=== PATIENT | male | born 1945 | race Caucasian/White ===

== ENCOUNTER → 2017-10-07 12:16 | Outpatient (CLI) | payer OTHER, SELFPAY ==
--- NOTE | 2017-10-07 | DI.MRI.S_ITS ---
PROCEDURE: MR ABDOMEN WO/W CON INDICATIONS: Liver cell carcinoma TECHNIQUE: Coronal HASTE, axial 2D FLASH in- and [id number]; axial breath-hold T2 FSE. Dynamic axial VIBE during the administration of contrast; post-contrast coronal VIBE or 2D FLASH with fat saturation from the hepatic dome to the iliac crests. Optional diffusion weighted imaging and ADC may be performed. COMPARISON: [facility], , ABDOMEN W&WO CONTRAST, 09/03/2015, 10:08. [facility], MR, ABDOMEN W&WO CONTRAST, 03/30/2016, 14:46. [facility], MR, ABDOMEN W&WO CONTRAST, 06/18/2016, 12:56. [facility], MR, ABDOMEN W&WO CONTRAST, 10/08/2016, 9:54. [facility], MR, ABDOMEN W&WO CONTRAST, 05/19/2017, 10:46. FINDINGS: Image quality: Excellent. Lung bases: No basal pleural effusions. Heart size is normal. Solid organs: Postsurgical changes are redemonstrated status post right hepatic lobe resection with fibrosis and scarring along the surgical margin. Along the posterior aspect of the surgical margin, there is a nodular focus of hypervascular enhancement following contrast administration measuring up to approximately 1.4 x 1.1 cm with slight washout on delayed imaging. In addition, along the mid inferior aspect of the surgical margin there is a small linear focus of hypervascular enhancement measuring approximately 0.3 cm which is indeterminate with no definitive washout on delayed images. Along the lateral left hepatic lobe, there is a peripheral collection redemonstrated demonstrating mildly hyperintense intrinsic T1 signal, measuring approximately 3.3 x 3.0 cm in transverse dimension. This appears similar in size compared to the prior study and demonstrates no definite internal enhancement following contrast administration. Findings likely represent sequela of prior treatment. In addition, within segment 3 of the lateral left hepatic lobe, there is a small hypervascular enhancing focus measuring approximately 0.5 cm which is new from the prior study. This demonstrates isointense signal on portal venous and delayed phases without definitive washout. Biliary system is non dilated. Pancreas is normal in morphology. Spleen is normal in size and enhancement. No adrenal nodules. Both kidneys demonstrate normal size and enhancement, without hydronephrosis. Nodes and vessels: No retroperitoneal or mesenteric adenopathy by size criteria. Aorta and inferior vena cava are normal in size. Bowel and peritoneum: Visualized bowel loops are normal in caliber. No free fluid. Bones and soft tissues: No ventral hernias. Bone marrow is normal in overall signal. IMPRESSION: 1. Postsurgical changes redemonstrated status post right hepatic lobe resection. 2. New hypervascular focus of enhancement along the posterior surgical margin with mild washout suspicious for recurrent disease. 3. Additional small linear 0.3 cm focus of enhancement along the surgical margin is nonspecific.. A new small nonspecific hypervascular focus is also noted in segment 3 of the left hepatic lobe. Recurrent disease cannot be excluded and continued followup is recommended. 4. Round nonenhancing collection along the lateral left hepatic lobe redemonstrated likely representing sequela of prior treatment. Dictated by: Jeremias Belcher M.D. on 10/07/2017 at 16:55 Approved by: Jeremias Belcher M.D. on 10/07/2017 at 17:17
[2017-10-07 13:16] LABS: Estimated Glomerular Filt Rate > 60.0 mL/min (>60)
== END ==
PROVIDERS: PCP Internal Medicine Gastroenterology; Visit Provider Internal Medicine Gastroenterology
DX: C22.0 Liver cell carcinoma (principal)
CPT/HCPCS: 36415; 74183; 82565; A9579

== ENCOUNTER → 2018-04-13 11:36 | Outpatient (CLI) | payer OTHER, SELFPAY ==
--- NOTE | 2018-04-13 | DI.MRI.S_ITS ---
PROCEDURE: MR ABDOMEN WO/W CON INDICATIONS: HEPATOCELLULAR CARCINOMA SURVEILLANCE TECHNIQUE: Coronal HASTE, axial 2D FLASH in- and [id number]; axial breath-hold T2 FSE. Dynamic axial VIBE during the administration of contrast; post-contrast coronal VIBE or 2D FLASH with fat saturation from the hepatic dome to the iliac crests. Optional diffusion weighted imaging and ADC may be performed. COMPARISON: [facility], MR, ABDOMEN W&WO CONTRAST, 10/08/2016, 9:54. [facility], MR, ABDOMEN W&WO CONTRAST, 06/18/2016, 12:56. [facility], MR, MR ABDOMEN WO/W CON, 10/07/2017, 14:25. [facility], MR, ABDOMEN W&WO CONTRAST, 05/19/2017, 10:46. FINDINGS: Image quality: Excellent. Lung bases: No basal pleural effusions. Heart size is normal. Solid organs: Liver is stable in size, showing postoperative change of right hepatic lobe resection. The left portal vein is patent, and reference to the multiple prior similar MR studies show evidence of recurrent hepatoma at 2 sites, in my opinion. One is located at the posterior border of the resection bed, best seen on the early arterial phase of contrast enhancement, and seen on the prior MRI from September of last year on series 11 image 44. This appears to be slightly enlarged seen on the current series 8, image 17. The current maximal dimension of this focus of enhancement is 1.8 cm, and previously it had measured 1.3 cm. The second site is at the far posterior border of the left lateral hepatic segment, also which appears to have slightly enlarged. On the prior study this had measured 8 mm in maximal dimension, series 11 image 42 and currently measures 1.4 cm in maximal dimension, series 8 image 22. Each of these areas shows early washout, and a rounded hypoenhancing structure immediately above the left lateral hepatic segment lesion is again noted, has not enlarged and measures approximately 3.0 cm in diameter. Gallbladder appears absent. Biliary system is non dilated. Pancreas is normal in morphology. Spleen is normal in size and enhancement. No adrenal nodules. Both kidneys demonstrate normal size and enhancement, without hydronephrosis. Nodes and vessels: No retroperitoneal or mesenteric adenopathy by size criteria. Aorta and inferior vena cava are normal in size. Bowel and peritoneum: Unenhanced bowel loops are normal in caliber. No free fluid. Bones and soft tissues: No ventral hernias. Bone marrow is normal in overall signal. IMPRESSION: 2 hyperenhancing foci of hepatic parenchyma previously present as small lesions on the comparison MRI 10/07/17 have mildly enlarged, most consistent with recurrent hepatoma in this patient with prior right hepatectomy or prior disease. Stable appearance of a hypoenhancing nodule within the liver parenchyma on the left consistent with successfully treated prior disease. Dictated by: Anish Stewart M.D. on 04/13/2018 at 16:43 Approved by: Anish Stewart M.D. on 04/13/2018 at 16:52
== END ==
PROVIDERS: PCP Internal Medicine Gastroenterology; Visit Provider Internal Medicine Gastroenterology
DX: C22.0 Liver cell carcinoma (principal)
CPT/HCPCS: 74183; A9579

== ENCOUNTER → 2018-07-25 09:58 | Outpatient (CLI) | payer OTHER, SELFPAY ==
--- NOTE | 2018-07-25 | DI.MRI.S_ITS ---
PROCEDURE: MR ABDOMEN WO/W CON INDICATIONS: LIVER CELL CARCINOMA TECHNIQUE: Coronal HASTE, axial 2D FLASH in- and [id number]; axial breath-hold T2 FSE. Dynamic axial VIBE during the administration of contrast; post-contrast coronal VIBE or 2D FLASH with fat saturation from the hepatic dome to the iliac crests. Optional diffusion weighted imaging and ADC may be performed. COMPARISON: [facility], MR, ABDOMEN W&WO CONTRAST, 05/19/2017, 10:46. [facility], MR, MR ABDOMEN WO/W CON, 10/07/2017, 14:25. [facility], MR, MR ABDOMEN WO/W CON, 04/13/2018, 12:45. FINDINGS: Image quality: Excellent. Lung bases: No basal pleural effusions. Heart size is normal. Solid organs: Postsurgical changes are redemonstrated status post resection of the right hepatic lobe. Along the medial surgical margin in the residual liver, there is a small focus of hypervascular enhancement redemonstrated measuring up to approximately 1.0 x 1.0 cm in transverse dimension, decreased in size from approximately 1.8 x 1.2 cm on the prior study at a comparable level. There is corresponding mild washout redemonstrated on the delayed phase. The findings are again compatible with residual or recurrent disease. Peripherally within segment 2, there is a small region of possible hypervascular enhancement redemonstrated with evaluation limited T2 artifact from adjacent bowel loops. There is no definite corresponding washout on the delayed phase. This lesion appears increased in size compared to the prior study, measuring up to approximately 2.0 x 1.2 cm in transverse dimension. Within segment 2 of the left hepatic lobe more posteriorly, there is a small hypervascular focus of enhancement measuring approximately 0.7 cm which is increased in size from the prior study. There is suggestion of mild washout on the delayed phase. The findings likely represent another focus of hepatocellular carcinoma. Peripherally within the left hepatic lobe in segment 2 there is a round collection redemonstrated measuring approximately 3.3 x 3.1 cm without corresponding enhancement consistent with post treatment changes. The gallbladder is surgically absent. Biliary system is non dilated. Pancreas is normal in morphology. Spleen is normal in size. No adrenal nodules. The kidneys demonstrate no hydronephrosis. Nodes and vessels: No retroperitoneal or mesenteric adenopathy by size criteria. Aorta and inferior vena cava are normal in size. Bowel and peritoneum: Visualized bowel loops are normal in caliber. No free fluid. Bones and soft tissues: No ventral hernias. Bone marrow is normal in overall signal. IMPRESSION: 1. Postsurgical changes redemonstrated status post right hepatic lobe resection. Along the surgical margin, and there is a persistent hypervascular enhancing lesion with washout compatible with residual or recurrent disease. This demonstrates slight decrease in size compared to the prior study. 2. Small 0.7 cm hypervascular lesion within segment 2 of the left hepatic lobe with corresponding washout demonstrates interval increase in size and likely represents another focus of hepatocellular carcinoma. 3. Decrease in size of an ill-defined region of hypervascularity peripherally within segment 2 of the left hepatic lobe. No discrete washout identified on the delayed phase. The findings are nonspecific and may represent vascular shunting but attention is recommended on followup. 4. Post treatment cavity redemonstrated in segment 2 of the left hepatic lobe. Dictated by: Jeremias Belcher M.D. on 07/25/2018 at 16:34 Approved by: Jeremias Belcher M.D. on 07/25/2018 at 16:49
== END ==
PROVIDERS: PCP Internal Medicine Gastroenterology; Visit Provider Radiology Vascular & Interventional Radiology
DX: C22.0 Liver cell carcinoma (principal)
CPT/HCPCS: 74183; A9579

== ENCOUNTER → 2018-10-21 11:50 | Outpatient (CLI) | payer OTHER, SELFPAY ==
--- NOTE | 2018-10-21 | DI.MRI.S_ITS ---
PROCEDURE: MR ABDOMEN WO/W CON INDICATIONS: follow up TECHNIQUE: Coronal HASTE, axial 2D FLASH in- and [id number]; axial breath-hold T2 FSE. Dynamic axial VIBE during the administration of contrast; post-contrast coronal VIBE or 2D FLASH with fat saturation from the hepatic dome to the iliac crests. Optional diffusion weighted imaging and ADC may be performed. COMPARISON: [facility], MR, ABDOMEN W&WO CONTRAST, 05/19/2017, 10:46. [facility], MR, MR ABDOMEN WO/W CON, 10/07/2017, 14:25. [facility], MR, MR ABDOMEN WO/W CON, 04/13/2018, 12:45. [facility], MR, MR ABDOMEN WO/W CON, 07/25/2018, 10:52. FINDINGS: Image quality: Excellent. Lung bases: No basal pleural effusions. Heart size is normal. Solid organs: There are postsurgical changes consistent with prior right hepatic lobectomy. Along the surgical margin, there is a small hypervascular enhancing lesion redemonstrated measuring approximately 1.9 x 1.4 cm in transverse dimension, progressively increased in size over time compared to the prior studies. There is slight washout again noted on the delayed phase. There is corresponding restricted diffusion. The finding is again suspicious for hepatocellular carcinoma. Within segment 2 of the left hepatic lobe, there is a small hypervascular enhancing lesion redemonstrated measuring up to 0.6 cm, similar in size to the prior study. There is associated washout without a discrete capsule. There is corresponding restricted diffusion. The findings are also suspicious for a new small focus of hepatocellular carcinoma. Laterally in segment 2 of the left hepatic lobe, there is a peripheral hypervascular lesion measuring 1.2 x 1.1 cm in transverse dimension, similar in size to the prior study but progressively increased compared to older exams. This demonstrates persistent hypervascular enhancement on the portal venous and delayed phases. There is also corresponding restricted diffusion. Although there is no washout on delayed images, the findings likely represent an atypical hepatocellular carcinoma. The remnant biliary system is non dilated. Pancreas is normal in morphology. Spleen is normal in size and enhancement. No adrenal nodules. Kidneys demonstrate no hydronephrosis. There are small bilateral renal cysts. Nodes and vessels: No retroperitoneal or mesenteric adenopathy by size criteria. Aorta and inferior vena cava are normal in size. Bowel and peritoneum: Visualized bowel loops are normal in caliber. No free fluid. Bones and soft tissues: No ventral hernias. Bone marrow is normal in overall signal. IMPRESSION: 1. Post surgical changes status post right hepatic lobectomy with progressive increase in size of a hypervascular lesion along the surgical margin redemonstrated. Given the associated washout and restricted diffusion, the findings are consistent with residual or recurrent hepatocellular carcinoma. LI-RADS 5 2. Additional lesions within segment 2 of the left hepatic lobe as described are also progressively increased compared to the prior studies and are consistent with multifocal HCC. LI-RADS 5 Dictated by: Jeremias Belcher M.D. on 10/21/2018 at 15:59 Approved by: Jeremias Belcher M.D. on 10/21/2018 at 16:35
== END ==
PROVIDERS: PCP Internal Medicine Gastroenterology; Visit Provider Internal Medicine Gastroenterology
DX: Z08 Encounter for follow-up examination after completed treatment for malignant neoplasm (principal); Z85.05 Personal history of malignant neoplasm of liver; K76.9 Liver disease, unspecified
CPT/HCPCS: 74183; A9579

== ENCOUNTER → 2019-06-20 10:08 | Outpatient (CLI) | payer OTHER, SELFPAY ==
--- NOTE | 2019-06-20 | DI.US.S_ITS ---
PROCEDURE: US ABDOMEN LIMITED INDICATIONS: POSSIBLE ASCITES TECHNIQUE: Real-time focused scanning was performed of the abdomen, with image documentation. COMPARISON: None. FINDINGS: No ascites found. IMPRESSION: No ascites present for paracentesis. Dictated by: Anish Stewart M.D. on 06/20/2019 at 13:24 Approved by: Anish Stewart M.D. on 06/20/2019 at 13:25
[2019-06-20 10:42] LABS: Add Manual Diff / Slide Review NO; Basophils Absolute Auto 0 /uL (0-100); Basophils Percent Auto 0.3 % (0-2); Eosinophils Absolute Auto 0 /uL (0-450); Eosinophils Percent Auto 0.6 % (2-4); Hematocrit 41.1 % (41-53); Hemoglobin 13.6 g/dL (13.5-17.5); Lymphocytes Absolute Auto 500 /uL (1100-4500); Lymphocytes Percent Auto 5.9 % (25-40); Mean Corpuscular Hemoglobin 29.7 PG (26-34); Mean Corpuscular Volume 90.1 fL (80-100); Monocytes Absolute Auto 300 /uL (0-900); Monocytes Percent Auto 3.1 % (3-14); Neutrophils Absolute Auto 7500 /uL (1500-7000); Neutrophils Percent Auto 90.1 % (50-75); Platelet Count 94 X10^3/uL (150-400); Red Blood Cell Count 4.56 X10^6/uL (4.5-5.9); Red Cell Distribution Width 16.1 % (11.6-14.8); White Blood Cell Count 8.3 X10^3/uL (4.5-11.0)
[2019-06-20 10:52] LABS: INR 0.9 (0.9-1.3); Prothrombin Time 10.4 SECONDS (10.1-12.7)
== END ==
PROVIDERS: PCP Internal Medicine Gastroenterology; Referring Provider Family Medicine; Visit Provider Family Medicine
DX: R18.8 Other ascites (principal); R06.00 Dyspnea, unspecified
CPT/HCPCS: 36415; 76705; 85025; 85610

== ENCOUNTER 2019-09-07 18:52 | Observation (INO) | payer MEDICARE, SELFPAY ==
[2019-09-07] VITALS (7 sets, daily range): BP systolic 99–139; BP diastolic 63–92; PULSE 86–112; RESP 19–28; TEMP 36.5–37; O2SAT 82–97; BMI 22.0
--- NOTE | 2019-09-07 19:42 | CM.SWNOTE ---
ACCOUNT EXECUTIVE TRAINEE note ACCOUNT EXECUTIVE TRAINEE consult requested for patient. Patient is a 74 y/o male currently on hospice who comes to ED via air transport for difficulty breathing. ACCOUNT EXECUTIVE TRAINEE checks in with Dr. Ndiaye. Dr. Ndiaye states that patient is going to need to be on oxygen, but is otherwise well connected to resources. Dr. Ndiaye reports that patient will be doing with dignity, and that Dr. Ndiaye is currently coordinating with hospice doctor for in home oxygen needs. Dr. Ndiaye indicates that ACCOUNT EXECUTIVE TRAINEE consult for patient is not required at this time, and ACCOUNT EXECUTIVE TRAINEE does not consult with patient. MANI Novoa
--- NOTE | 2019-09-07 19:53 | ED.SOB ---
HPI - SOB/Dyspnea General Chief Complaint: Shortness of Breath/Dyspnea Stated Complaint: Resp distress Time Seen by Provider: 09/07/19 18:59 Source: patient and EMS Mode of arrival: EMS Limitations: physical limitation and other History of Present Illness HPI Narrative: 74-year-old hospice patient with metastatic lung cancer with severe episode of dyspnea at home on [place] today. He notes that with certain positions he has increased dyspnea, he was bending over and squatting down and experienced sudden dramatic dyspnea that was not resolved with nebulizer or morphine at home. He contacted hospice as well as 1 and was transported to the emergency department via airlift. Initial saturations were in the mid 70s significantly hypertensive and anxious with obvious respiratory distress. Responded well to non-rebreather and by the time he arrived to the emergency room is down to 3 L nasal cannula. He remained he was dynamically stable throughout his transfer to the ER and his ER stay. Related Data Allergies Allergy/AdvReac Type Severity Reaction Status Date / Time No Known Drug Allergies Allergy Verified 09/07/19 19:41 Review of Systems Review of Systems Narrative: Fatigue, weight loss, chronic dyspnea, constipation, he abdominal pain as well as musculoskeletal metastatic pain, no increased lower extremity edema, no new rashes Remainder of review is otherwise unremarkable Patient History Medical History Brain metastases (Acute) Liver cancer, primary, with metastasis from liver to other site (Acute) Lung metastases (Acute) Surgical History H/O resection of liver (Acute) Previous back surgery (Acute) S/P laparoscopic surgery (Acute) S/P TURP (Acute) Family History Father CVA (cerebral vascular accident) Mother Old age Social History household members: other Smoking Status: Former smoker alcohol intake: never Smoking Status: Former smoker Exam Narrative Exam Narrative: General: Well appearing, in no acute distress. Able to give a complete and coherent history. Able to speak in full sentences, 3 L of oxygen in place HEENT: Moist mucous membranes, normal sclera with reactive pupils, Neck: supple Respiratory: Lungs are clear to auscultation, with minor scattered wheezing and mild rhonchi in the right axillary line. symmetrical air movement without accessory muscle use Cardiac: Tachycardic with Regular rate and rhythm no murmurs no bruits Abdomen: Distended with moderate ascites, hypoactive bowel tones Skin: Poor peripheral perfusion, multiple bruises in various stages of healing over his body Neurologic: Grossly neurologically intact with no obvious asymmetries or abnormalities Extremities: No trauma, well perfused Psych: Cooperative, appropriate insight and affect Initial Vital Signs Initial Vital Signs: Vital Signs Temperature 98.4 F 09/07/19 19:00 Pulse Rate 112 H 09/07/19 19:00 Respiratory Rate 28 H 09/07/19 19:00 Blood Pressure 116/77 09/07/19 19:00 Pulse Oximetry 82 L 09/07/19 19:00 Course Orders Ordered: ED Orders 09/07/19 19:29 Consult to JUNIOR SALES ASSISTANT - Diesel Technician Mechanic Stat 09/07/19 20:34 Education, smoking cessation ONGOING 09/07/19 20:38 Consult to Discharge Planning Routine Consult to Physical Therapy Evaluate & Treat Hydrocodone Bitart/Acetaminophen (Mchenry 5/325) 1 tab PO Q4HR PRN PRN Reason: Pain, Moderate (4-6) Dexamethasone (Decadron) 2 mg PO DAILY [facility] Fluconazole (Diflucan) 100 mg PO DAILY [facility] Guaifenesin (Mucinex) 600 mg PO Q12HR PRN PRN Reason: Cough Lactulose (Enulose) 20 gm PO BID [facility] Levetiracetam (Keppra) 1,000 mg PO BID [facility] Methadone HCl (Methadone) 5 mg PO BEDTIME [facility] Methadone HCl (Methadone) 2.5 mg PO DAILYCC [facility] Naloxone HCl (Narcan) 0.2 mg IV Q2MIN PRN PRN Reason: Opiate Reversal Ondansetron HCl (Zofran) 4 mg IV Q8HR PRN PRN Reason: Nausea And Vomiting Ondansetron HCl (Zofran Odt) 4 mg PO Q8HR PRN PRN Reason: Nausea And Vomiting Pantoprazole Sodium (Protonix) 40 mg PO 0700 [facility] Sodium Chloride (Normal Saline 0.9% Flush) 10 ml IV PRN PRN PRN Reason: Flush Sodium Chloride (Normal Saline 0.9% Flush) 10 ml IV BID [facility] Discontinued Medications Lactulose (Enulose) 20 gm PO NOW ONE Stop: 09/07/19 19:20 Last Admin: 09/07/19 19:58 Dose: 20 gm Documented by: [email or web address] Vital Signs Vital signs: Vital Signs - 8 hr 09/07/19 19:00 09/07/19 19:07 09/07/19 20:30 Temperature 98.4 F 98.6 F Pulse Rate 112 H 105 H 104 H Respiratory Rate 28 H 19 24 Blood Pressure 116/77 116/77 139/92 H Pulse Oximetry 82 L 95 94 MDM - SOB/Dyspnea Lab Data Labs: Lab Results 09/07/19 Range/Units 20:24 COVID-19 PCR Negative (Negative) MDM Narrative Medical decision making narrative: Dr Ken, hospice doctor. Admit under hospice general inpt benefit for uncontrolled dyspnea. Will need help in arranging home oxygen and will have food and drink factory workers contact him to see if he needs other assisted services at home with anticipation of discharge back to [place] and his home in coordination with available oxygen. In discussion with the patient as he is clearly feeling better at this point we opted to not do any additional workup or imaging studies Discharge Plan Departure Patient Disposition: Admitted As Inpatient Clinical Impression: Dyspnea Qualifiers: Dyspnea type: other forms of dyspnea Qualified Code(s): R06.09 - Other forms of dyspnea Admit Date/Time: 09/07/19 20:43 Admit Provider: Timmy Mo
[2019-09-07] MEDS: LACTULOSE 20 GM/30 ML SOLUTION PO (19:58)
--- NOTE | 2019-09-07 20:39 | PM.HP.1 ---
History of Present Illness History of Present Illness Date Patient Seen: 09/07/19 Time Patient Seen: 20:39 Chief complaint: Resp distress Narrative: This is a 74 year old male with Metastatic Liver Cancer, previously on hospice who is admitted after an acute episode of dyspnea/hypoxia today at home. He lives alone on [address] and earlier today bent over/squatted to reach something and became acutely short of breath. He tried his nebulizer albuterol and some morphine but could not catch his breath. When the paramedics arrived they reported a saturation of 70% on room air. He was airlifted here and now is stabilized on 4 L of oxygen nasal cannula in the 90% saturation range. He appears quite comfortable. He will need oxygen arranged at home and will be resuming on hospice when he returns home. He is in the process of picking up his medication for the DWD program. He appears to have some thrush on his soft palate probably related to the daily dexamethasone therapy. There has been no chest pain, fevers or coughing. Due to his comfort care status no further workup is indicated or wished. Patient History Medical History (Updated 09/07/19 @ 21:04 by Timmy Mo MD) Brain metastases (Acute) Liver cancer, primary, with metastasis from liver to other site (Acute) Lung metastases (Acute) Surgical History (Updated 09/07/19 @ 23:49 by Timmy Mo MD) H/O resection of liver (Acute) Previous back surgery (Acute) S/P laparoscopic surgery (Acute) S/P TURP (Acute) Family & Social History Family History (Updated 09/07/19 @ 21:05 by Timmy Mo MD) Father CVA (cerebral vascular accident) Mother Old age Social History: His back up decision maker is likely his twin sister in [place]. Safety & Behavioral: Feels Safe in Current Yes Environment Been Physically Hurt or No Threatened By a Person Tobacco & Substance use: Smoking Status Former smoker Comment: He lives alone in a house on [address]. 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 No alcohol use. He revoked hospice to come here by air from [place]. He plans to resume hospice when he returns home on 09/07. Meds Home Medications and Allergies Allergies Allergy/AdvReac Type Severity Reaction Status Date / Time No Known Drug Allergies Allergy Verified 09/07/19 19:41 Review of Systems Review of Systems Narrative: Positive for shortness of breath and weakness Negative for fevers, chills, sweats, coughing, abdominal pain, rashes, chest pain, bleeding, diarrhea, dysuria, seizures, difficulty talking, allergies, sore throat. ROS: Yes All systems reviewed with the patient and are negative except as otherwise documented Exam Vital Signs (past 8 hours): - 09/07/19 19:00 09/07/19 19:07 Temperature 98.4 F 98.6 F Pulse Rate 112 H 105 H Respiratory Rate 28 H 19 Blood Pressure 116/77 116/77 Pulse Oximetry 82 L 95 Oxygen Delivery Method Nasal Cannula Oxygen Flow Rate 4 Narrative Exam Narrative: He is alert and oriented x3, in no apparent distress. He denies abdominal pain. Pupils are equally round reactive to light and accommodation. Extraocular muscles are intact. Sclerae are pink and nonicteric. No lymph nodes are felt head, neck, supraclavicular area. Throat looks normal except for small areas of thrush on the soft palate. JVD is less than 6 cm. No carotid bruits are heard. Heart is tachycardic regular rhythm without murmur Lungs are clear to auscultation bilaterally Abdomen is soft, bowel sounds positive, nontender, quite distended but without fluid wave. Liver appears to be enlarged. Extremities have 1+ pitting ankle edema bilaterally. Skin has no rash or jaundice Neuro exam Cranial nerves 2-12 test intact. Motor function is 4/5 throughout Gait and balance are not tested Assessment & Plan Assessment & Plan narrative: Metastatic Liver Cancer, present on admission. Active -continue home meds, not identified but known to include dexamethasone. (Lactulose, Methadone, Keppra) -return home tomorrow once home oxygen can be arranged by hospice with plans for DWD soon Hypoxia, present on admission. Active -likely related to pleural effusions/lung metastasis -continue oxygen and end of life care without further intervention or workup planned. Lung Metastasis, present on admission. Active -undoubtedly part of the presentation of today's sudden hypoxia. Brain Metastasis, present on admission. Chronic -no current evidence symptoms, continue dexamethasone and Keppra. Oral Candidiasis, present on admision. Active -the location on the soft palate makes it unlikely that this would respond to nystatin swish and swallow so will use Diflucan.
[2019-09-07 21:21] LABS: COVID19 -Nasal RAPID Negative (Negative)
[2019-09-08] MEDS: METHADONE 5 MG TABLET PO (00:56)
[2019-09-08 03:05] VITALS: BP 141/85; PULSE 98; RESP 20; TEMP 36.1; O2SAT 98
--- NOTE | 2019-09-08 05:14 | PC.NURSE ---
0115 Patient is alert and oriented. Breath sounds CTA but did auscultate some bilateral upper lobe expiratory wheezing after being up to bathroom. Oxygen at 3L/min per NC with sat of 97%; on continuous oximetry. Is SOB both at rest and with exertion. HRR but tachy in low 100's. Denies nausea. BT present. Abdomen is distended and tender to touch. Able to turn self. Up to bathroom with cane and 1 assist as is weak and unsteady. Voiding on toilet; denies dysuria, frequency or urgency. Has bruising on bilateral UE with scabbed abrasions on right UE. Bruising and scabbed abrasions also noted on bilateral buttocks. Edema present in bilateral feet left > right. 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 Bilateral calf SCD's applied. Denies pain.
[2019-09-08] MEDS: PANTOPRAZOLE 40 MG TABLET PO (06:13)
[2019-09-08 07:45] VITALS: BP 145/98; PULSE 72; RESP 20; TEMP 36.5; O2SAT 98
[2019-09-08 08:39] VITALS: O2SAT 98
[2019-09-08] MEDS: LACTULOSE 20 GM/30 ML SOLUTION PO (08:42)
[2019-09-08] MEDS: levETIRAcetam 250 MG TABLET 1000 MG PO (08:43)
[2019-09-08] MEDS: METHADONE 5 MG TABLET 2.5 MG PO (08:44)
[2019-09-08] MEDS: FLUCONAZOLE 100 MG TABLET PO (08:44)
[2019-09-08] MEDS: dexAMETHasone 1 MG TABLET 2 MG PO (08:44)
[2019-09-08] MEDS: SODIUM CHLORIDE 0.9% FLUSH 10 ML IV (08:48)
--- NOTE | 2019-09-08 08:48 | P.DS_ITS ---
History of Present Illness History of Present Illness Date Patient Seen: 09/07/19 Chief complaint: Resp distress Narrative: Written by Dr. Mo: This is a 74 year old male with Metastatic Liver Cancer, previously on hospice who is admitted after an acute episode of dyspnea/hypoxia today at home. He lives alone on [address] and earlier today bent over/squatted to reach something and became acutely short of breath. He tried his nebulizer albuterol and some morphine but could not catch his breath. When the paramedics arrived they reported a saturation of 70% on room air. He was airlifted here and now is stabilized on 4 L of oxygen nasal cannula in the 90% saturation range. He appears quite comfortable. He will need oxygen arranged at home and will be resuming on hospice when he returns home. He is in the process of picking up his medication for the DWD program. He appears to have some thrush on his soft palate probably related to the daily dexamethasone therapy. There has been no chest pain, fevers or coughing. Due to his comfort care status no further workup is indicated or wished. Discharge Providers Provider Date of admission: 09/07/19 20:43 Discharge Date: 09/08/19 Primary care physician: Yonis Smalls MD Consults: 09/07/19 19:29 Consult to SATELLITE TELEVISION INSTALLER - Jailkeeper Stat Comment: 09/07/19 20:38 Consult to Discharge Planning Routine Comment: Consult to Physical Therapy Evaluate & Treat Comment: Physician Instructions: Evaluate and Treat Discharge provider: Yajaira Moraes DO Summary Hospital Course Discharge Diagnosis: 1. Hypoxemic respiratory failure, likely acute on chronic, present on admission. Active. 2. Metastatic liver cancer, chronic, present on admission. Active. 3. Lung metastasis, chronic, present on admission. Active. 4. Brain metastasis, present on admission. Stable. 5. Oral candidiasis, present on admision. Resolving. Hospital Course: Nicolas Doe is a 74-year-old male with metastatic liver cancer who was admitted after an acute episode of dyspnea/hypoxia. 1. Hypoxemic respiratory failure, likely acute on chronic, present on admission. Active. -Likely related to pleural effusions/lung metastasis. -Continued supplemental oxygen and end of life care without further intervention or workup desired. 2. Metastatic liver cancer, chronic, present on admission. Active. -Continued home medications. -Patient was admitted for observation until home oxygen was arranged by hospice with plans for DWD soon. 3. Lung metastasis, chronic, present on admission. Active. -Undoubtedly part of the presentation of sudden hypoxemia. 4. Brain metastasis, present on admission. Stable. -No current evidence symptoms. Continued home dexamethasone and Keppra. 5. Oral candidiasis, present on admision. Resolving. -Received Diflucan. Exam Vital Signs (past 8 hours): - 09/08/19 03:05 09/08/19 07:45 09/08/19 08:39 Temperature 97.0 F L 97.7 F Pulse Rate 98 H 72 Respiratory Rate 20 20 Blood Pressure 141/85 H 145/98 H Pulse Oximetry 98 98 98 Oxygen Delivery Method Nasal Cannula Oxygen Flow Rate 3 Narrative Exam Narrative: General: Elderly thin and frail male lying in bed and in no acute distress, appears mildly uncomfortable, chronically ill appearing, mildly anxious but appropriately interactive. HEENT: Normocephalic, atraumatic. External ears without defect. Pupils equal, round, and reactive to light. Anicteric sclerae, moaist conjunctivae, and no lid lag. Neck: Supple with full range of motion. No jugular venous distension. No lymphadenopathy or thyromegaly. Cardiovascular: Regular rate and rhythm without murmurs, rubs, or gallops christa reciated Pulmonary: Clear to auscultation bilaterally but diminished at bases R>L without crackles, wheezes, or rhonchi. Normal respiratory effort with mild use of accessory muscles. Abdomen: Soft, moderate distention, bowel sounds hypoactive, nontender. Hepatosplenomegaly appreciated. Extremities: No clubbing or cyanosis. Moderate pitting edema to ankles. Skin: Normal temperature, turgor, and texture; no rash, ulcers, or subcutaneous nodules appreciated. Neurological: Cranial nerves grossly intact. Psychiatric: Normal mood and affect. Alert and oriented to person, place, and time. Objective Labs Labs: Laboratory Results - last 24 hr 09/07/19 20:24 COVID-19 PCR Negative Discharge Plan Discharge Plan Patient Disposition: Hospice - Home Discharge comment: You are being discharged home to resume hospice care. You will need 2-3 L of continuous supplemental oxygen and hospice will provide oxygen to travel home and oxygen delivered to your house. Please continue your previously prescribed medications for comfort. Discharge orders & Medications Discharge Orders: Discharge (Order); Ordered 09/08/19 Ordered By: Yajaira Moraes Prescriptions: Continued sennosides [Yaa-demi] 8.6 mg Tablet 8.6 mg PO BID PRN (Reason: Constipation) RF: 0 ipratropium-albuterol 0.5 mg-3 mg(2.5 mg base)/3 mL solution for nebulization 3 ml INHALATION QID PRN (Reason: Wheezing) RF: 0 morphine concentrate 100 mg/5 mL (20 mg/mL) Solution 5 mg PO Q1H PRN (Reason: PAIN) RF: 0 aspirin 325 mg tablet 325 mg PO DAILY RF: 0 midazolam 5 mg/mL Solution See Rx Instructions .ROUTE .COMPLEX PRN (Reason: Seizure Activity) RF: 0 acyclovir 400 mg tablet 4 mg PO TID RF: 0 lorazepam 0.5 mg Tablet 0.5 mg PO Q2H PRN (Reason: Anxiety) RF: 0 pantoprazole 40 mg tablet,delayed release (DR/EC) 40 mg PO DAILY RF: 0 dexamethasone 4 mg tablet 4 mg PO DAILY RF: 0 methadone 5 mg tablet 2.5 mg PO DAILY RF: 0 methadone 5 mg Tablet 5 mg PO 1800 RF: 0 haloperidol lactate 2 mg/mL Concentrate 0.5 mg PO Q2H PRN (Reason: AGITATION) RF: 0 clonazepam 2 mg Tablet,Disintegrating 2 mg PO Q4H RF: 0 levetiracetam [Keppra] 1,000 mg tablet 1,000 mg PO BID RF: 0 melatonin 5 mg Tablet 5 mg PO BEDTIME PRN (Reason: Sleep) RF: 0 melatonin 5 mg Tablet 10 mg PO BEDTIME PRN (Reason: Sleep) RF: 0 lactulose 10 gram/15 mL solution 10 g PO DAILY PRN (Reason: Constipation) RF: 0 Follow up/Referrals: Yonis Smalls MD [Primary Care Provider] - Diet/Activity/Treatments Diet: Diet as Tolerated Diet comment: Comfort eating Activity: Activity as tolerated Oxygen: 2-3 L continuous supplemental oxygen Visit Report/Discharge Packet Instructions: Home Oxygen Therapy Visit Report Forms: Patient Portal/API, Stroke Signs & Symptoms Discharge Data Primary Care Provider: Yonis Smalls Attending Provider: Timmy Mo Admit Date/Time: 09/07/19 20:43 Discharges patient from system. Discharge Date/Time: 09/08/19 13:26 Quality VTE Deep Vein Thrombosis/Pulmonary Embolism Present on Admission: No
--- NOTE | 2019-09-08 11:14 | PC.NURSE ---
Assess- Patient is A&Ox3. He has been given 5mg of morphine concentrate to help his sob. Up with 1pa. Patients home oxygen has been delivered, he will be taking the [address] to [place] as he will be discharged from the hospital at 1330. He has to pick a medication up at [facility]. His friend Nicolas will be called shortly and he will be notified of this. Patients BS with rhonci and wheezes to all lobes. Patient has gotten up at least 4 times to use the bathroom. He is voiding small amounts per patient. Sob with any kind of exertion. He is on 3l of o2 and sats lower 90s.
--- NOTE | 2019-09-08 11:15 | PT.IIE ---
Surgical History (Last Reviewed 09/08/19 @ 00:13 by Faith Ndiaye MD) H/O resection of liver (Acute) Previous back surgery (Acute) S/P laparoscopic surgery (Acute) S/P TURP (Acute) Medical History (Last Reviewed 09/08/19 @ 00:13 by Faith Ndiaye MD) Brain metastases (Acute) Liver cancer, primary, with metastasis from liver to other site (Acute) Lung metastases (Acute) Physical Therapy Inpatient Evaluation/Re-Eval M1 PT/OT-IP Prior Functional Status Start: 09/08/19 12:22 Freq: NEEDED Status: Active Protocol: Document 09/08/19 11:15 AB (Rec: 09/08/19 12:39 AB [id number]) Medical Review Prior Functional Status Medical History Reviewed Yes Communication able to make needs known Mobility and Gait pt stated that he is modified independent with all mobilities and ambulation using a SPC Social History Household Members other Living Arrangements House Number of Floors (Floors) One Floor Number of Stairs To Enter/Railing? 2 platform steps to enter Home Environment Standard Height Toilet,Tub/ Shower Home Equipment Straight Cane,Raised Toilet Seat w/Armrests,Hand Held Shower,Grab Bars In Shower Additional Social History Comment pt stated that his friend will stay with him for ~ 2 days until he gets settled in; has a hospice nurse that comes in once a week to check on pt M2 PT-IP Current Condition Start: 09/08/19 12:22 Freq: NEEDED Status: Active Protocol: Document 09/08/19 11:15 AB (Rec: 09/08/19 12:39 AB [email or web address]) Physical Therapy Current Condition Current Condition Evaluation Date 09/08/19 Treatment Diagnosis dyspnea; liver CA with lung mets; difficulty in walking Onset Date 09/07/19 Precautions Other Precautions O2 sat: with 3L/min O2 M3 PT-IP Subjective Start: 09/08/19 12:22 Freq: NEEDED Status: Active Protocol: Document 09/08/19 11:15 AB (Rec: 09/08/19 12:39 AB [email or web address]) Subjective Physical Therapy Visit Type Type Initial Evaluation Visit Start Time 11:15 Visit Stop Time 11:40 Total Visit Minutes 25 Number of ACTIVE DIRECTORY ENGINEER Visits 0 Physical Therapy Visit Comments Patient Comments stated that he is tired and wanting to rest but agreed to do PT Therapy Pain Assessment Pain Present Pain Present Denied Pain M4 PT-IP Mobility and Gait Start: 09/08/19 12:22 Freq: NEEDED Status: Active Protocol: Document 09/08/19 11:15 AB (Rec: 09/08/19 12:39 AB [id number]) PT-Bed Mobility Assessment Supine to Sit Supine to Sit Standby Assistance Sit to Supine Sit to Supine Standby Assistance PT-Transfer Assessment Sit to and From Stand Sit to and from Stand Standby Assistance Equipment Transfer Assistive Device Gait Belt,Straight Cane Orthotic/Prosthetic Devices or Brace: No Comments Mobility Comments completed supine to sit SBA. completed sit to stand SBA. cued pt to manage O2 tube. completed ambulation in room 20 ft using SPC SBA. presents with usteady antalgic gait. completed up/down step stool min A and cues. pt requested to just go back to bed and completed sit to supine SBA. postioned pt in bed. call light and table within reach. informed pt regarding equipement needs: shower chair and w/c for long distance mobility. pt stated that he will ask his hospice nurse. pt has 3L/min O2 and plans to go home with O2 for home use. O2 sat maintained 94-96% with O2 on. Gait Assessment Gait Gait Assistance Required: Standby Assistance,1 Person Assist Distance (Feet) 20 Able to Maintain Weight Bearing Status Yes During Gait Assistive Devices Assistive Device Gait Belt,Straight Cane Orthotic/Prosthetic Devices or Brace: No Gait Deviations General Gait Pattern Antalgic,Decreased Stride Length,Decreased Feet Clearance Factors Limiting Gait Function Factors Limiting Gait Function Decreased Activity Tolerance, Decreased Strength,Poor Balance,Poor Safety Awareness, Respiratory Distress Stair Climbing Assessment Evaluation Level of Assist On Stairs Minimal Assistance Devices Stair Climbing Assistive Devices Straight Cane Technique/Endurance Stair Climbing Direction Ascend and Descend Stair Climbing Technique Step to Step Number of Steps Climbed 1 Query Text: Stair Climbing Set # Repetitions (reps) 1 PT-Balance Assessment Sitting Balance and Reactions Static Sitting Balance Ability Good Dynamic Sitting Balance Ability Good Standing Balance and Reactions Static Standing Balance Ability Fair Dynamic Standing Balance Ability Fair Device Used spc M5 PT-IP Objective Assessments Start: 09/08/19 12:22 Freq: NEEDED Status: Active Protocol: Document 09/08/19 11:15 AB (Rec: 09/08/19 12:39 AB [id number]) Orientation Orientation/Cognition Level of Alertness Alert Orientation Name,Place,Situation Safety Awareness Understands Safety Issues Gross Range of Motion Lower Extremity ROM Assessment Within Functional Limits Strength Lower Extremity Strength Assessment Within Functional Limits Coordination Assessment Gross Coordination Gross Coordination WNL Sensation Assessment Sensation Gross Sensation Left LE Impaired Sensation Description Numbness Comments Sensation Comments c/o L foot numbness and stated that this is due to his edema Muscle Tone Muscle Tone WNL Yes M6 PT-IP Treatment Start: 09/08/19 12:22 Freq: NEEDED Status: Active Protocol: Document 09/08/19 11:15 AB (Rec: 09/08/19 12:39 AB [id number]) Physical Therapy Treatment Education Education Provided Safety M7 PT-IP Assessment and Plan Start: 09/08/19 12:22 Freq: NEEDED Status: Active Protocol: Document 09/08/19 11:15 AB (Rec: 09/08/19 12:39 AB [id number]) PT Summary Assessment and Plan Potential Rehabilitation Potential Fair Status of Condition at Evaluation Evolving Summary Impairments Pain,ROM,Strength,Balance, Coordination,Sensation,Bed Mobility,Transfers,Gait, Activity Tolerance Assessment Summary pt has liver CA with lung and brain mets and is under hospice care. pt in the hospital for respiratory distress. pt plans to go home and will have his friend assist him for 2 days. informed pt regarding assistance and equipement needs and stated that he sill talk to his hospice nurse. pt easily fatigues and will need assistance at home. Goals Bed Mobility Goal Independent Transfer Goal Independent,Cane Gait Goal Independent,Cane Gait Distance 50 Other Goals up/down 2 platform steps using SPC SBA Days to Meet Goals 5 Frequency of Treatment Frequency Of Treatment Once a Day Treatment Plan Physical Therapy Treatment Plan Bed Mobility Training,Transfer Training,Gait Training, Therapeutic Exercise,Balance Retraining,Discharge Planning, Neuromuscular Re-ed Recommendations To Nursing Amount of Assist Needed 1 Person Assist Discharge Recommendations PT Discharge Recommendations Home with Assistance,Home with 24/7 Assist Transportation Needs at Discharge Private Vehicle
[2019-09-08] MEDS: MORPHINE 10 MG/0.5 ML ORAL SYRINGE 5 MG PO (11:27)
--- NOTE | 2019-09-08 14:45 | CM.IDA ---
Initial DCP Assessment Note Patient is a 74 yo male, resident of [place]. Patient presents w/an acute episode of dyspnea/hypoxia at home today, in the setting of metastatic liver cancer, mets to the brain and lung. PCP: Yonis Smalls Payer: [facility] Reviewed chart and met w/patient. Patient confirms it is his goal to return home today w/friend to assist him. Patient states re: w/[facility] (DWD) I went through all the bureaucracy (to secure Rx) and now the prescription is waiting for me to fruit picker machine operator Patient revoked hospice to come to the hospital, now has requested to get back on hospice through [facility]. [facility] team are arranging portable O2 be delivered by [facility] to patient's hospital room this morning. Once delivered, patient and friend will fruit picker machine operator DWD Rx and catch the 15:05 ferry boat back to [place]. This PLASTIC AND RECONSTRUCTIVE SURGEON completed priority boarding pass for the ferry and alerted Odalys at [facility] that above coordination had been done. Patient left this afternoon w/friend. No additional needs requested of this PLASTIC AND RECONSTRUCTIVE SURGEON. MANI Sanders
== END 2019-09-08 13:26 | disposition hospice, home (50) ==
LOC: ED 19:24 → AC 09-08 00:16
PROVIDERS: Admitting Provider Family Medicine; Emergency Provider Emergency Medicine; PCP Internal Medicine Gastroenterology; Referring Provider Emergency Medicine; Visit Provider Family Medicine
DX: R09.02 Hypoxemia (principal); R06.02 Shortness of breath; C22.9 Malignant neoplasm of liver, not specified as primary or secondary; C78.00 Secondary malignant neoplasm of unspecified lung; C79.31 Secondary malignant neoplasm of brain; B37.0 Candidal stomatitis; Z11.59 Encounter for screening for other viral diseases
CPT/HCPCS: 87635; 94762; 97162; 99283; 99284; G0378